=== PATIENT | female | born 2000 | race Caucasian/White ===

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

== ENCOUNTER 2022-07-07 20:27 | Emergency (ER) | payer BC, MEDICAID ==
[2022-07-07] MEDS ORDERED: Sodium Chloride 0.9% 10 ML Syringe FLUSH PRN (21:34)
[2022-07-07] MEDS ORDERED: Ondansetron 4 MG/2 ML SDV IVPUSH ONE (21:34)
[2022-07-07] MEDS ORDERED: Sodium Chloride 0.9% 1,000 ML IV STA (21:34)
== END 2022-07-08 00:04 | disposition home or self-care (01) ==
LOC: JD.ED 20:27
DX: O21.9 Vomiting of pregnancy, unspecified (principal); Z86.16 Personal history of COVID-19; Z3A.11 11 weeks gestation of pregnancy
CPT/HCPCS: 36415; 76801; 80053; 81001; 83690; 85025; 96361; 96374; 99284; J2405; J3490; J7030; 99283

== ENCOUNTER 2024-07-06 14:30 | Inpatient (IN) | payer MEDICAID ==
[~2024-07-06 14:30] MED LIST: Bupivacaine 0.25% 10 ML SDV ONE
[2024-07-06] MEDS ORDERED: Acetaminophen 325 MG Tab PO PRN ×2 (15:21→22:34)
[2024-07-06] MEDS ORDERED: Ondansetron 4 MG/2 ML SDV IVPUSH PRN (15:21)
[2024-07-06] MEDS ORDERED: Calcium Carbonate 500 MG Tab.Chew PO PRN (15:21)
[2024-07-06] MEDS ORDERED: Lidocaine 1% 50 ML MDV INJECT PRN (15:21)
[2024-07-06] MEDS ORDERED: Oxytocin/0.9 % Sodium Chloride 30 UNIT/500 ML BAG IV SCH (15:30)
[2024-07-06 15:45] LABS: BASOPHILS ABSOLUTE AUTO 0.1 K/mm3 (0.0-0.2); BASOPHILS PERCENT AUTO 0.5 % (0.0-1.0); EOSINOPHILS ABSOLUTE AUTO 0.1 K/mm3 (0.0-0.4); EOSINOPHILS PERCENT AUTO 1.1 % (0.0-6.0); HEMATOCRIT 37.2 % (37.0-47.0); HEMOGLOBIN 11.3 gm/dl (12.0-16.0); IMMATURE GRAN ABSOLUTE AUTO 0.12 K/mm3 (0.00-0.05); LYMPHOCYTES ABSOLUTE AUTO 2.7 K/mm3 (1.0-4.8); LYMPHOCYTES PERCENT AUTO 21.8 % (24.0-44.0); MEAN CORPUSCULAR HEMOGLOBIN 23.1 pg (28.0-32.0); MEAN CORPUSCULAR HGB CONC 30.4 g/dl (32.0-36.0); MEAN CORPUSCULAR VOLUME 75.9 fl (83.0-99.0); MEAN PLATELET VOLUME 9.6 fl (9.4-12.3); MONOCYTES ABSOLUTE AUTO 0.9 K/mm3 (0.0-0.8); MONOCYTES PERCENT AUTO 6.9 % (0.0-8.0); NEUTROPHILS ABSOLUTE AUTO 8.6 K/mm3 (1.8-7.7); NEUTROPHILS PERCENT AUTO 68.7 % (41.0-71.0); PLATELET COUNT,PLT 308 K/mm3 (150-400); WHITE BLOOD CELL COUNT,WBC 12.45 K/mm3 (3.9-11.3)
[2024-07-06] MEDS: Lactated Ringers 1,000 ML IV SCH (18:24)
[2024-07-06] MEDS: Oxytocin/0.9 % Sodium Chloride 30 UNIT/500 ML BAG IV SCH (18:27)
[2024-07-06] MEDS ORDERED: ePHEDrine 50 MG/ML SDV IVPUSH PRN (20:18)
[2024-07-06] MEDS ORDERED: diphenhydrAMINE 50 MG/ML SDV IVPUSH PRN (20:18)
[2024-07-06] MEDS: Bupivacaine/fentaNYL/NS 100 ML Bag EPIDUR PRN (20:29)
[2024-07-06] MEDS: fentaNYL 100 MCG/2 ML SDV EPIDUR PRN (20:29)
[2024-07-06] MEDS: Ibuprofen 800 MG Tab PO SCH (23:34)
[2024-07-06] MEDS: Witch Hazel Medicated Pads 40/Jar TOP PRN (23:35)
[2024-07-06] MEDS: Benzocaine/Menthol 20%-0.5% Spray 78 GM Cannister TOP PRN (23:36)
[2024-07-07] MEDS: Ibuprofen 800 MG Tab PO SCH (07:43)
[2024-07-07] MEDS ORDERED: Simethicone 80 MG Tab.Chew PO PRN (17:43)
[2024-07-08] MEDS: Docusate Sodium 100 MG Cap PO PRN (09:15)
== END 2024-07-08 10:55 | disposition home or self-care (01) | DRG 807 ==
LOC: JD.OBCHECK 14:30 → JD.OB 14:33 → JD.OBCHECK 15:21 → JD.OB 15:22 → OBSVTOIN 22:09 → JD.OB 22:10
PROVIDERS: ADMIT Obstetrics & Gynecology; ATTEND Obstetrics & Gynecology
PROC: 10E0XZZ Delivery of Products of Conception, External Approach (ICD-10-PCS; principal; 2024-07-06)
PROC: 10907ZC Drainage of Amniotic Fluid, Therapeutic from Products of Conception, Via Natural or Artificial Opening (ICD-10-PCS; 2024-07-06)
PROC: 3E033VJ Introduction of Other Hormone into Peripheral Vein, Percutaneous Approach (ICD-10-PCS; 2024-07-06)
PROC: 0HQ9XZZ Repair Perineum Skin, External Approach (ICD-10-PCS; 2024-07-06)
PROC: 3E0R3BZ Introduction of Anesthetic Agent into Spinal Canal, Percutaneous Approach (ICD-10-PCS; 2024-07-06)
PROC: 00HU33Z Insertion of Infusion Device into Spinal Canal, Percutaneous Approach (ICD-10-PCS; 2024-07-06)
DX: O48.0 Post-term pregnancy (principal); Z37.0 Single live birth; O36.8130 Decreased fetal movements, third trimester, not applicable or unspecified; O99.52 Diseases of the respiratory system complicating childbirth; J45.909 Unspecified asthma, uncomplicated; O70.0 First degree perineal laceration during delivery; Z3A.40 40 weeks gestation of pregnancy; Z86.16 Personal history of COVID-19; Z90.49 Acquired absence of other specified parts of digestive tract
CPT/HCPCS: 36415; 51702; 59025; 59409; 85025; 86592; 86850; 86900; 86901; A9270-GY; J0665; J3010; J3490; J7120; J7999